=== PATIENT | male | born 1940 | race Caucasian/White ===

== ENCOUNTER 2017-01-06 20:21 | Inpatient (IN) | payer MEDICAID, MEDICARE, OTHER ==
[~2017-01-06] VITALS: Ht 162.6 cm; Wt 63.7 kg
[~2017-01-06 20:21] MED LIST: ESCI10TA PO; FOLI1 PO; MULT-1238 PO; PANT40TA25 PO; THIA100 PO
[2017-01-06] MEDS ORDERED: HALOPERIDOL 5 MG TABLET PO PRN (21:00)
[2017-01-06] MEDS ORDERED: LORazepam 2 MG TABLET PO PRN (21:00)
[2017-01-06] MEDS ORDERED: ZOLPIDEM TARTRATE 10 MG TABLET PO PRN (21:00)
[2017-01-06 21:26] VITALS: BP 124/84
[2017-01-06] MEDS: TraZODone HCL 100 MG TABLET PO SCH (21:32)
[2017-01-06 21:49] VITALS: BP 142/79
[2017-01-07 00:36] VITALS: BP 105/58
[2017-01-07 08:26] VITALS: BP 118/66
[2017-01-07 08:48] LABS: BASOPHILS % (AUTO) 0.4 % (0.0-2.0); EOSINOPHILS % (AUTO) 4.6 % (1.0-6.0); HEMATOCRIT 34.8 % (41-53); HEMOGLOBIN 11.3 g/dL (13.5-17.5); LYMPHOCYTES # (AUTO) 4.1 K/uL (1.0-4.8); LYMPHOCYTES % (AUTO) 37.7 % (22.0-44.0); MEAN CORPUSCULAR HEMOGLOBIN 27.3 pg (26.0-34.0); MEAN CORPUSCULAR HGB CONC 32.5 G/dL (31.0-37.0); MEAN CORPUSCULAR VOLUME 84 fL (80-100); MONOCYTES # (AUTO) 0.6 K/uL (0.1-1.0); NEUTROPHILS # (AUTO) 5.5 K/uL (1.8-7.7); NEUTROPHILS % (AUTO) 51.3 % (40.0-70.0); PLATELET COUNT (AUTO) 241 K/uL (150-450); RED BLOOD CELL COUNT(AUTO) 4.14 MIL/uL (4.50-5.90); RED CELL DISTRIBUTION WIDTH 16.3 % (11.5-14.5); WHITE BLOOD COUNT (AUTO) 10.8 K/uL (4.5-11.0)
[2017-01-07 09:29] LABS: HEMOGLOBIN A1C 5.6 % (4.5-6.2)
[2017-01-07] MEDS: ESCITALOPRAM OXALATE 10 MG TABLET PO SCH (09:35)
[2017-01-07 09:46] LABS: ALANINE AMINOTRANSFERASE 17 U/L (12-78); ALBUMIN 3.2 g/dL (3.4-5.0); ANION GAP 9 mmol/L (8-16); ASPARTATE AMINOTRANSFERASE 7 U/L (15-37); BILIRUBIN,TOTAL 0.4 mg/dL (0.1-1.0); CALCIUM, TOTAL 8.7 mg/dL (8.8-10.5); CARBON DIOXIDE 27 mmol/L (22-29); CHLORIDE 105 mmol/L (98-107); CHOL/HDL RATIO 1.8 (4.2-7.3); CREATININE 0.81 mg/dL (0.60-1.30); GLOMERULAR FILTR. RATE CALC > 60 mL/min (>60); POTASSIUM 4.3 mmol/L (3.5-5.1); SODIUM SERUM 141 mmol/L (136-145); THYROID STIMULATING HORMONE 1.58 uIU/mL (0.36-3.74); TOTAL PROTEIN, SERUM 6.6 g/dL (6.4-8.2); UREA NITROGEN, BLOOD 18 mg/dL (7-18)
[2017-01-07] MEDS ORDERED: PANTOPRAZOLE SODIUM 40 MG DR TABLET PO SCH (10:15)
[2017-01-07] MEDS: PANTOPRAZOLE SODIUM 40 MG DR TABLET PO SCH ×2 (10:24→16:17)
[2017-01-07 10:37] LABS: ADD UA MICROSCOPIC NO; APPEARANCE,URINE CLEAR (CLEAR); GLUCOSE, URINE (UA) NEGATIVE (NEGATIVE); KETONES,URINE NEGATIVE (NEGATIVE); LEUKOCYTE ESTERASE ,URINE NEGATIVE (NEGATIVE); OCCULT BLOOD,URINE NEGATIVE (NEGATIVE); PH,URINE 5.5 (5.0-8.0); PROTEIN,URINE NEGATIVE (NEGATIVE)
[2017-01-07 16:16] VITALS: BP 137/81
[2017-01-07] MEDS: TraZODone HCL 100 MG TABLET PO SCH (20:18)
[2017-01-08 06:36] VITALS: BP 134/74
[2017-01-08 08:32] VITALS: BP 102/64
[2017-01-08 08:32] LABS: BASOPHILS % (AUTO) 0.4 % (0.0-2.0); HEMATOCRIT 34.9 % (41-53); HEMOGLOBIN 11.5 g/dL (13.5-17.5); LYMPHOCYTES # (AUTO) 2.9 K/uL (1.0-4.8); LYMPHOCYTES % (AUTO) 36.8 % (22.0-44.0); MEAN CORPUSCULAR HEMOGLOBIN 27.6 pg (26.0-34.0); MEAN CORPUSCULAR HGB CONC 32.8 G/dL (31.0-37.0); MEAN CORPUSCULAR VOLUME 84 fL (80-100); MONOCYTES # (AUTO) 0.4 K/uL (0.1-1.0); MONOCYTES % (AUTO) 5.5 % (2.0-9.0); NEUTROPHILS # (AUTO) 4.1 K/uL (1.8-7.7); NEUTROPHILS % (AUTO) 52.3 % (40.0-70.0); PLATELET COUNT (AUTO) 230 K/uL (150-450); RED BLOOD CELL COUNT(AUTO) 4.16 MIL/uL (4.50-5.90); RED CELL DISTRIBUTION WIDTH 16.3 % (11.5-14.5); WHITE BLOOD COUNT (AUTO) 7.9 K/uL (4.5-11.0)
[2017-01-08] MEDS: ESCITALOPRAM OXALATE 10 MG TABLET PO SCH (08:38)
[2017-01-08] MEDS: PANTOPRAZOLE SODIUM 40 MG DR TABLET PO SCH ×2 (08:39→16:24)
[2017-01-08] MEDS: FOLIC ACID 1 MG TABLET PO SCH (08:39)
[2017-01-08] MEDS: THIAMINE HCL 100 MG TABLET PO SCH (08:39)
[2017-01-08 09:22] LABS: ALANINE AMINOTRANSFERASE 15 U/L (12-78); ALBUMIN 3.1 g/dL (3.4-5.0); ANION GAP 8 mmol/L (8-16); ASPARTATE AMINOTRANSFERASE 7 U/L (15-37); BILIRUBIN,TOTAL 0.5 mg/dL (0.1-1.0); CALCIUM, TOTAL 8.4 mg/dL (8.8-10.5); CARBON DIOXIDE 28 mmol/L (22-29); CHLORIDE 107 mmol/L (98-107); CHOL/HDL RATIO 2.2 (4.2-7.3); CREATINE KINASE, TOTAL 96 U/L (39-308); CREATININE 0.85 mg/dL (0.60-1.30); GLOMERULAR FILTR. RATE CALC > 60 mL/min (>60); POTASSIUM 4.1 mmol/L (3.5-5.1); SODIUM SERUM 143 mmol/L (136-145); THYROID STIMULATING HORMONE 0.44 uIU/mL (0.36-3.74); TOTAL PROTEIN, SERUM 6.4 g/dL (6.4-8.2); UREA NITROGEN, BLOOD 15 mg/dL (7-18)
[2017-01-08 10:16] LABS: HEMOGLOBIN A1C 5.6 % (4.5-6.2)
[2017-01-08 16:10] VITALS: BP 133/68
[2017-01-08] MEDS: TraZODone HCL 100 MG TABLET PO SCH (20:43)
[2017-01-09 05:57] VITALS: BP 136/60
[2017-01-09 08:45] VITALS: BP 128/59
[2017-01-09] MEDS: THIAMINE HCL 100 MG TABLET PO SCH (09:13)
[2017-01-09] MEDS: FOLIC ACID 1 MG TABLET PO SCH (09:13)
[2017-01-09] MEDS: PANTOPRAZOLE SODIUM 40 MG DR TABLET PO SCH ×2 (09:14→16:28)
[2017-01-09] MEDS: ESCITALOPRAM OXALATE 10 MG TABLET PO SCH (09:14)
[2017-01-09 12:23] LABS: HEPATITIS Bs ANTIGEN SCREEN P Negative (Negative); HEPATITIS C AB SCREEN <0.1 s/co ratio (0.0-0.9)
[2017-01-09 16:00] VITALS: BP 128/75
[2017-01-09] MEDS: TraZODone HCL 100 MG TABLET PO SCH (20:30)
[2017-01-10 06:37] VITALS: BP 129/76
[2017-01-10 08:22] VITALS: BP 131/68
[2017-01-10] MEDS: FOLIC ACID 1 MG TABLET PO SCH (09:18)
[2017-01-10] MEDS: ESCITALOPRAM OXALATE 10 MG TABLET PO SCH (09:18)
[2017-01-10] MEDS: PANTOPRAZOLE SODIUM 40 MG DR TABLET PO SCH ×2 (09:18→16:14)
[2017-01-10] MEDS: THIAMINE HCL 100 MG TABLET PO SCH (09:18)
[2017-01-10 16:18] VITALS: BP 109/74
[2017-01-10] MEDS: TraZODone HCL 100 MG TABLET PO SCH (20:49)
[2017-01-11 07:03] VITALS: BP 138/67
[2017-01-11 07:36] VITALS: BP 110/75
[2017-01-11 08:01] VITALS: BP 138/67
[2017-01-11] MEDS: FOLIC ACID 1 MG TABLET PO SCH (09:38)
[2017-01-11] MEDS: PANTOPRAZOLE SODIUM 40 MG DR TABLET PO SCH ×2 (09:38→17:03)
[2017-01-11] MEDS: ESCITALOPRAM OXALATE 10 MG TABLET PO SCH (09:39)
[2017-01-11] MEDS: THIAMINE HCL 100 MG TABLET PO SCH (09:39)
[2017-01-11 16:26] VITALS: BP 113/62
[2017-01-11] MEDS: TraZODone HCL 100 MG TABLET PO SCH (20:41)
[2017-01-12 04:35] VITALS: BP 122/60
[2017-01-12 08:36] VITALS: BP 131/67
[2017-01-12] MEDS: THIAMINE HCL 100 MG TABLET PO SCH (08:54)
[2017-01-12] MEDS: ESCITALOPRAM OXALATE 10 MG TABLET PO SCH (08:54)
[2017-01-12] MEDS: FOLIC ACID 1 MG TABLET PO SCH (08:54)
[2017-01-12] MEDS: PANTOPRAZOLE SODIUM 40 MG DR TABLET PO SCH ×2 (08:55→16:08)
[2017-01-12 16:06] VITALS: BP 147/73
[2017-01-12] MEDS: TraZODone HCL 100 MG TABLET PO SCH (20:39)
[2017-01-13 06:36] VITALS: BP 135/63
[2017-01-13 08:09] VITALS: BP 149/78
[2017-01-13] MEDS: FOLIC ACID 1 MG TABLET PO SCH (08:24)
[2017-01-13] MEDS: THIAMINE HCL 100 MG TABLET PO SCH (08:24)
[2017-01-13] MEDS: ESCITALOPRAM OXALATE 10 MG TABLET PO SCH (08:25)
[2017-01-13] MEDS: PANTOPRAZOLE SODIUM 40 MG DR TABLET PO SCH ×2 (08:25→16:45)
[2017-01-13] MEDS ORDERED: ALBUTEROL SULFATE HFA 90 MCG/PUFF 8 GM INHALER IH PRN (11:45)
[2017-01-13 16:32] VITALS: BP 139/73
[2017-01-13] MEDS: TraZODone HCL 100 MG TABLET PO SCH (20:25)
[2017-01-14 06:26] VITALS: BP 110/70
[2017-01-14 08:00] VITALS: BP 146/79
[2017-01-14] MEDS: PANTOPRAZOLE SODIUM 40 MG DR TABLET PO SCH (08:17)
[2017-01-14] MEDS: FOLIC ACID 1 MG TABLET PO SCH (08:17)
[2017-01-14] MEDS: THIAMINE HCL 100 MG TABLET PO SCH (08:17)
[2017-01-14] MEDS: ESCITALOPRAM OXALATE 10 MG TABLET PO SCH (08:18)
[2017-01-14] MEDS ORDERED: FLUTICASONE/VILANTEROL 200-25 MCG/INH INHALER [14] IH SCH (09:00)
[2017-01-14] MEDS ORDERED: TRAZ-147 PO (10:19)
[2017-01-14] MEDS ORDERED: FLUT1BLS PO (10:20)
[2017-01-14] MEDS ORDERED: ALBU8HFA4 IH (10:21)
[2017-01-14 16:08] VITALS: BP 107/60
[2017-04-26] MEDS ORDERED: OMEP20 PO (18:33)
[2017-04-26] MEDS ORDERED: ATOR20TA86 PO (18:33)
[2017-04-26] MEDS ORDERED: FURO40 PO (18:33)
[2017-04-26] MEDS ORDERED: PERCT10 PO (18:33)
[2017-04-26] MEDS ORDERED: AMLO-512 PO (18:33)
== END 2017-01-14 14:10 | DRG 885 ==
LOC: B2S 20:53 → EDSTATUS 21:06 → B2S 01-08 21:42
DX: F33.2 Major depressive disorder, recurrent severe without psychotic features (principal); R45.851 Suicidal ideations; I50.30 Unspecified diastolic (congestive) heart failure; K21.9 Gastro-esophageal reflux disease without esophagitis; E78.5 Hyperlipidemia, unspecified; F10.10 Alcohol abuse, uncomplicated; D64.9 Anemia, unspecified; K44.9 Diaphragmatic hernia without obstruction or gangrene; J44.9 Chronic obstructive pulmonary disease, unspecified; I70.0 Atherosclerosis of aorta; N28.1 Cyst of kidney, acquired; I11.0 Hypertensive heart disease with heart failure; I25.10 Atherosclerotic heart disease of native coronary artery without angina pectoris; E88.09 Other disorders of plasma-protein metabolism, not elsewhere classified; F41.9 Anxiety disorder, unspecified; F17.200 Nicotine dependence, unspecified, uncomplicated; Z59.0 Homelessness; Z71.41 Alcohol abuse counseling and surveillance of alcoholic; Z79.899 Other long term (current) drug therapy
CPT/HCPCS: 71020; 71250; 80074; 80307; 82306; 82607; 82746; 83036; 83735; 84439; 84443; 86592; 87081

== ENCOUNTER → 2017-02-25 | Outpatient (CLI) | payer MEDICARE, OTHER ==
[~2017-02-25] VITALS: Ht 162.6 cm; Wt 67.0 kg
[~2017-02-25] MED LIST changes: +ALBU8HFA4 IH; +AMLO-512 PO; +ATOR20TA86 PO; +FLUT1BLS PO; -FOLI1 PO; +FURO40 PO; -MULT-1238 PO; +OMEP20 PO; +PERCT10 PO; -THIA100 PO; +TRAZ-147 PO
[2017-02-25 11:52] VITALS: BP 104/62
== END | disposition home or self-care (01) ==
LOC: SRCNTR 11:37
PROVIDERS: ATTEND Internal Medicine Critical Care Medicine
DX: J44.9 Chronic obstructive pulmonary disease, unspecified (principal); F32.9 Major depressive disorder, single episode, unspecified; F17.210 Nicotine dependence, cigarettes, uncomplicated; R76.11 Nonspecific reaction to tuberculin skin test without active tuberculosis; E78.5 Hyperlipidemia, unspecified; I10 Essential (primary) hypertension; F10.10 Alcohol abuse, uncomplicated
CPT/HCPCS: G0463

== ENCOUNTER 2017-12-05 14:05 | Emergency (ER) | payer MEDICAID, MEDICARE ==
[~2017-12-05] VITALS: Ht 162.6 cm; Wt 59.1 kg
[~2017-12-05 14:05] MED LIST changes: -ALBU8HFA4 IH; -FLUT1BLS PO; -PANT40TA25 PO; -PERCT10 PO
[2017-12-05] MEDS ORDERED: SODIUM CHLORIDE 0.9% 1,000 ML IV ONE (15:15)
[2017-12-05] MEDS ORDERED: PANTOPRAZOLE SODIUM 40 MG/VIAL IVP ONE (15:15)
[2017-12-05] MEDS ORDERED: HYDROmorphone 2 MG/ML SYRINGE IVP ONE (15:15)
[2017-12-05] MEDS ORDERED: ONDANSETRON HCL 4 MG/2 ML VIAL IVP ONE (15:15)
[2017-12-05 15:52] LABS: BASOPHILS % (AUTO) 0.4 % (0.0-2.0); EOSINOPHILS % (AUTO) 0.1 % (1.0-6.0); HEMATOCRIT 35.4 % (41-53); HEMOGLOBIN 11.5 g/dL (13.5-17.5); LYMPHOCYTES # (AUTO) 1.4 K/uL (1.0-4.8); LYMPHOCYTES % (AUTO) 14.3 % (22.0-44.0); MEAN CORPUSCULAR HEMOGLOBIN 24.4 pg (26.0-34.0); MEAN CORPUSCULAR HGB CONC 32.6 G/dL (31.0-37.0); MEAN CORPUSCULAR VOLUME 75 fL (80-100); MONOCYTES # (AUTO) 0.7 K/uL (0.1-1.0); MONOCYTES % (AUTO) 7.3 % (2.0-9.0); NEUTROPHILS # (AUTO) 7.6 K/uL (1.8-7.7); NEUTROPHILS % (AUTO) 77.9 % (40.0-70.0); PLATELET COUNT (AUTO) 280 K/uL (150-450); RED BLOOD CELL COUNT(AUTO) 4.72 MIL/uL (4.50-5.90); RED CELL DISTRIBUTION WIDTH 17.1 % (11.5-14.5)
[2017-12-05 15:59] LABS: ANION GAP 10 mmol/L (8-16); CALCIUM, TOTAL 8.9 mg/dL (8.8-10.5); CARBON DIOXIDE 29 mmol/L (22-29); CHLORIDE 103 mmol/L (98-107); CREATININE 0.92 mg/dL (0.60-1.30); GLOMERULAR FILTR. RATE CALC > 60 mL/min (>60); GLUCOSE,RANDOM 114 mg/dL (70-110); POTASSIUM 3.9 mmol/L (3.5-5.1); SODIUM SERUM 142 mmol/L (136-145); UREA NITROGEN, BLOOD 12 mg/dL (7-18)
[2017-12-05 16:09] LABS: B-TYPE NATRIURETIC PEPTIDE 44 pg/mL (0-100)
[2017-12-05 16:11] LABS: PLATELET MORPHOLOGY COMMENT LARGE PLTS PRESENT
[2017-12-05 16:24] LABS: ALANINE AMINOTRANSFERASE 21 U/L (12-78); ALBUMIN 3.7 g/dL (3.4-5.0); ALKALINE PHOSPHATASE 72 U/L (46-116); ASPARTATE AMINOTRANSFERASE 8 U/L (15-37); BILIRUBIN,TOTAL 0.8 mg/dL (0.1-1.0); CREATINE KINASE MB 1.2 ng/mL (0-5); CREATINE KINASE, TOTAL 139 U/L (39-308); LIPASE 72 U/L (73-393); TOTAL PROTEIN, SERUM 7.5 g/dL (6.4-8.2)
[2017-12-05] MEDS ORDERED: DONNATAL/LIDOCAINE/MAALOX 55 ML BOTTLE PO ONE (16:45)
[2017-12-05 17:36] VITALS: BP 193/95
[2017-12-05] MEDS ORDERED: CloNIDine HCL 0.2 MG TABLET PO ONE (18:15)
== END 2017-12-05 18:31 | disposition left against medical advice (07) ==
LOC: EMS 14:07
DX: K44.9 Diaphragmatic hernia without obstruction or gangrene (principal); E78.00 Pure hypercholesterolemia, unspecified; I11.0 Hypertensive heart disease with heart failure; I50.9 Heart failure, unspecified; K21.9 Gastro-esophageal reflux disease without esophagitis; F17.200 Nicotine dependence, unspecified, uncomplicated
CPT/HCPCS: 36415; 71045; 80053; 82550; 82553; 83690; 83880; 84484; 85025; 93005; 96361; 96374; 96375; 99285; C9113; G0480; J1170; J2405; J7030

== ENCOUNTER 2017-12-17 19:32 | Inpatient (IN) | payer OTHER ==
[~2017-12-17] VITALS: Ht 162.6 cm; Wt 59.4 kg
[2017-12-17] MEDS ORDERED: ZOLP10TA7 PO (19:54)
[2017-12-17] MEDS ORDERED: PERCT PO (19:54)
[2017-12-17 20:11] LABS: BASOPHILS % (AUTO) 0.5 % (0.0-2.0); EOSINOPHILS % (AUTO) 0.2 % (1.0-6.0); HEMATOCRIT 35.2 % (41-53); HEMOGLOBIN 11.5 g/dL (13.5-17.5); LYMPHOCYTES # (AUTO) 2.9 K/uL (1.0-4.8); LYMPHOCYTES % (AUTO) 20.3 % (22.0-44.0); MEAN CORPUSCULAR HEMOGLOBIN 24.4 pg (26.0-34.0); MEAN CORPUSCULAR HGB CONC 32.7 G/dL (31.0-37.0); MEAN CORPUSCULAR VOLUME 75 fL (80-100); MONOCYTES # (AUTO) 0.6 K/uL (0.1-1.0); MONOCYTES % (AUTO) 4.1 % (2.0-9.0); NEUTROPHILS # (AUTO) 10.6 K/uL (1.8-7.7); NEUTROPHILS % (AUTO) 74.9 % (40.0-70.0); PLATELET COUNT (AUTO) 359 K/uL (150-450); RED BLOOD CELL COUNT(AUTO) 4.73 MIL/uL (4.50-5.90); RED CELL DISTRIBUTION WIDTH 16.6 % (11.5-14.5)
[2017-12-17 20:26] LABS: ANION GAP 10 mmol/L (8-16); CALCIUM, TOTAL 9.4 mg/dL (8.8-10.5); CARBON DIOXIDE 30 mmol/L (22-29); CHLORIDE 100 mmol/L (98-107); CREATININE 1.24 mg/dL (0.60-1.30); GLOMERULAR FILTR. RATE CALC 57 mL/min (>60); GLUCOSE,RANDOM 119 mg/dL (70-110); POTASSIUM 3.8 mmol/L (3.5-5.1); SODIUM SERUM 140 mmol/L (136-145); UREA NITROGEN, BLOOD 29 mg/dL (7-18)
[2017-12-17 20:31] LABS: ALANINE AMINOTRANSFERASE 23 U/L (12-78); ALKALINE PHOSPHATASE 74 U/L (46-116); ASPARTATE AMINOTRANSFERASE 9 U/L (15-37); BILIRUBIN,TOTAL 0.4 mg/dL (0.1-1.0); TOTAL PROTEIN, SERUM 7.8 g/dL (6.4-8.2)
[2017-12-17] MEDS ORDERED: LORazepam 2 MG TABLET PO PRN (22:30)
[2017-12-17] MEDS ORDERED: ZOLPIDEM TARTRATE 10 MG TABLET PO PRN (22:30)
[2017-12-17] MEDS ORDERED: HALOPERIDOL 5 MG TABLET PO PRN (22:30)
[2017-12-18 01:32] VITALS: BP 133/76
[2017-12-18] MEDS ORDERED: PNEUMOCOCCAL VACCINE POLYVALENT 0.5 ML VIAL [PPSV23] IM ONE (02:15)
[2017-12-18] MEDS ORDERED: INFLUENZA VIRUS VACCINE QVS 2017-18 (3YR+)/PF 60 MCG/0.5 ML SYRINGE IM ONE (02:15)
[2017-12-18] MEDS: OMEPRAZOLE 20 MG CAPSULE PO SCH (08:32)
[2017-12-18] MEDS: AmLODIPine BESYLATE 10 MG TABLET PO SCH (08:33)
[2017-12-18 08:37] VITALS: BP 112/61
[2017-12-18] MEDS: ESCITALOPRAM OXALATE 10 MG TABLET PO SCH (13:25)
[2017-12-18 16:22] VITALS: BP 118/69
[2017-12-18] MEDS: FUROSEMIDE 40 MG TABLET PO SCH (16:24)
[2017-12-18] MEDS ORDERED: IBUPROFEN 400 MG TABLET PO PRN (16:30)
[2017-12-18] MEDS ORDERED: ACETAMINOPHEN 325 MG TABLET PO PRN (16:30)
[2017-12-18] MEDS ORDERED: TraZODone HCL 100 MG TABLET PO SCH (21:00)
[2017-12-19 01:00] VITALS: BP 111/61
[2017-12-19 08:35] VITALS: BP 124/71
[2017-12-19] MEDS: OMEPRAZOLE 20 MG CAPSULE PO SCH (08:56)
[2017-12-19] MEDS: AmLODIPine BESYLATE 10 MG TABLET PO SCH (08:56)
[2017-12-19] MEDS: FUROSEMIDE 40 MG TABLET PO SCH (08:57)
[2017-12-19] MEDS: ESCITALOPRAM OXALATE 10 MG TABLET PO SCH (08:57)
[2017-12-19 16:20] VITALS: BP 129/67
[2017-12-19] MEDS: ZOLPIDEM TARTRATE 10 MG TABLET PO SCH (20:44)
[2017-12-20 00:20] VITALS: BP 99/65
[2017-12-20 08:20] LABS: BASOPHILS % (AUTO) 0.6 % (0.0-2.0); EOSINOPHILS % (AUTO) 1.8 % (1.0-6.0); HEMATOCRIT 31.7 % (41-53); HEMOGLOBIN 10.2 g/dL (13.5-17.5); LYMPHOCYTES # (AUTO) 3.1 K/uL (1.0-4.8); LYMPHOCYTES % (AUTO) 40.6 % (22.0-44.0); MEAN CORPUSCULAR HEMOGLOBIN 24.1 pg (26.0-34.0); MEAN CORPUSCULAR HGB CONC 32.3 G/dL (31.0-37.0); MEAN CORPUSCULAR VOLUME 75 fL (80-100); MONOCYTES # (AUTO) 0.5 K/uL (0.1-1.0); MONOCYTES % (AUTO) 6.1 % (2.0-9.0); NEUTROPHILS # (AUTO) 3.9 K/uL (1.8-7.7); NEUTROPHILS % (AUTO) 50.9 % (40.0-70.0); PLATELET COUNT (AUTO) 299 K/uL (150-450); RED BLOOD CELL COUNT(AUTO) 4.24 MIL/uL (4.50-5.90); RED CELL DISTRIBUTION WIDTH 16.4 % (11.5-14.5)
[2017-12-20 08:29] LABS: ANION GAP 3 mmol/L (8-16); CALCIUM, TOTAL 8.6 mg/dL (8.8-10.5); CARBON DIOXIDE 34 mmol/L (22-29); CHLORIDE 104 mmol/L (98-107); CREATININE 0.88 mg/dL (0.60-1.30); GLOMERULAR FILTR. RATE CALC > 60 mL/min (>60); GLUCOSE,RANDOM 89 mg/dL (70-110); POTASSIUM 3.8 mmol/L (3.5-5.1); SODIUM SERUM 141 mmol/L (136-145); UREA NITROGEN, BLOOD 20 mg/dL (7-18)
[2017-12-20 08:31] VITALS: BP 105/60
[2017-12-20] MEDS: FUROSEMIDE 40 MG TABLET PO SCH (08:43)
[2017-12-20] MEDS: OMEPRAZOLE 20 MG CAPSULE PO SCH (08:44)
[2017-12-20] MEDS: ESCITALOPRAM OXALATE 10 MG TABLET PO SCH (08:44)
[2017-12-20] MEDS: AmLODIPine BESYLATE 10 MG TABLET PO SCH (08:44)
[2017-12-20 08:50] LABS: % IRON SATURATION 8.3 % (30-44); IRON, SERUM 25 mcg/dL (50-175); TOTAL IRON BINDING CAPACITY 299 mcg/dL (250-450)
[2017-12-20 16:22] VITALS: BP 114/72
[2017-12-20] MEDS: ZOLPIDEM TARTRATE 10 MG TABLET PO SCH (20:51)
[2017-12-21 01:24] VITALS: BP 104/64
[2017-12-21 08:46] VITALS: BP 108/60
[2017-12-21 08:55] VITALS: BP 110/64
[2017-12-21] MEDS: OMEPRAZOLE 20 MG CAPSULE PO SCH (08:58)
[2017-12-21] MEDS: FUROSEMIDE 40 MG TABLET PO SCH (08:58)
[2017-12-21] MEDS: AmLODIPine BESYLATE 10 MG TABLET PO SCH (08:58)
[2017-12-21] MEDS: ESCITALOPRAM OXALATE 10 MG TABLET PO SCH (08:58)
[2017-12-21 16:12] VITALS: BP 107/63
[2017-12-21] MEDS: ZOLPIDEM TARTRATE 10 MG TABLET PO SCH (20:46)
[2017-12-22 02:17] VITALS: BP 129/91
[2017-12-22 08:30] VITALS: BP 112/60
[2017-12-22] MEDS: ESCITALOPRAM OXALATE 10 MG TABLET PO SCH (08:49)
[2017-12-22] MEDS: AmLODIPine BESYLATE 10 MG TABLET PO SCH (08:49)
[2017-12-22] MEDS: FUROSEMIDE 40 MG TABLET PO SCH (08:49)
[2017-12-22] MEDS: OMEPRAZOLE 20 MG CAPSULE PO SCH (08:49)
[2017-12-22 16:08] VITALS: BP 115/61
[2017-12-22 16:09] VITALS: BP 116/68
[2017-12-22] MEDS: ZOLPIDEM TARTRATE 10 MG TABLET PO SCH (20:41)
[2017-12-23 00:17] VITALS: BP 112/63
[2017-12-23] MEDS: FUROSEMIDE 40 MG TABLET PO SCH (08:50)
[2017-12-23] MEDS: OMEPRAZOLE 20 MG CAPSULE PO SCH (08:50)
[2017-12-23] MEDS: AmLODIPine BESYLATE 10 MG TABLET PO SCH (08:50)
[2017-12-23] MEDS: ESCITALOPRAM OXALATE 10 MG TABLET PO SCH (08:50)
[2017-12-23 09:09] VITALS: BP 111/61
[2017-12-23 16:08] VITALS: BP 115/63
[2017-12-23] MEDS: FERROUS SULFATE 325 MG EC TABLET PO SCH (17:29)
[2017-12-23] MEDS: ZOLPIDEM TARTRATE 10 MG TABLET PO SCH (20:58)
[2017-12-24 06:12] VITALS: BP 111/70
[2017-12-24] MEDS: FERROUS SULFATE 325 MG EC TABLET PO SCH ×2 (06:41→11:30)
[2017-12-24] MEDS: FUROSEMIDE 40 MG TABLET PO SCH (08:24)
[2017-12-24] MEDS: OMEPRAZOLE 20 MG CAPSULE PO SCH (08:24)
[2017-12-24] MEDS: ESCITALOPRAM OXALATE 10 MG TABLET PO SCH (08:24)
[2017-12-24] MEDS: AmLODIPine BESYLATE 10 MG TABLET PO SCH (08:24)
[2017-12-24 08:27] VITALS: BP 115/60
[2017-12-24] MEDS ORDERED: ESCI10TA PO (10:49)
[2017-12-24] MEDS ORDERED: FERR-89 PO (10:51)
== END 2017-12-24 13:40 | disposition home or self-care (01) | DRG 885 ==
LOC: EMS 19:39 → B2X 12-18 00:05 → B2S 12-22 08:35 → B2X 12-22 15:27
PROVIDERS: ADMIT Psychiatry & Neurology Child & Adolescent Psychiatry; ATTEND Psychiatry & Neurology Child & Adolescent Psychiatry
DX: F33.2 Major depressive disorder, recurrent severe without psychotic features (principal); I11.0 Hypertensive heart disease with heart failure; R45.851 Suicidal ideations; I50.9 Heart failure, unspecified; D64.9 Anemia, unspecified; J44.9 Chronic obstructive pulmonary disease, unspecified; D72.829 Elevated white blood cell count, unspecified; E78.5 Hyperlipidemia, unspecified; F10.10 Alcohol abuse, uncomplicated; F17.200 Nicotine dependence, unspecified, uncomplicated; I25.10 Atherosclerotic heart disease of native coronary artery without angina pectoris; K21.9 Gastro-esophageal reflux disease without esophagitis; Z59.0 Homelessness
CPT/HCPCS: 83540; 83550; 87081; 90471; 99285; G0480

== ENCOUNTER 2017-12-31 16:23 | Inpatient (IN) | payer OTHER ==
[~2017-12-31] VITALS: Ht 162.6 cm; Wt 57.2 kg
[~2017-12-31 16:23] MED LIST changes: -ATOR20TA86 PO; +FERR-89 PO; -TRAZ-147 PO
[2017-12-31] MEDS ORDERED: LORazepam 2 MG TABLET PO PRN (18:15)
[2017-12-31] MEDS ORDERED: PNEUMOCOCCAL VACCINE POLYVALENT 0.5 ML VIAL [PPSV23] IM ONE (18:15)
[2017-12-31] MEDS ORDERED: INFLUENZA VIRUS VACCINE QVS 2017-18 (3YR+)/PF 60 MCG/0.5 ML SYRINGE IM ONE (18:15)
[2017-12-31] MEDS ORDERED: HALOPERIDOL 5 MG TABLET PO PRN (18:15)
[2017-12-31 18:40] VITALS: BP 143/73
[2017-12-31] MEDS ORDERED: IBUPROFEN 400 MG TABLET PO PRN (19:15)
[2017-12-31] MEDS ORDERED: ACETAMINOPHEN 325 MG TABLET PO PRN (19:15)
[2018-01-01 06:09] VITALS: BP 118/64
[2018-01-01] MEDS: FERROUS SULFATE 325 MG EC TABLET PO SCH ×3 (07:11→16:59)
[2018-01-01] MEDS ORDERED: ACETAMINOPHEN 325 MG TABLET PO PRN (07:15)
[2018-01-01] MEDS ORDERED: IBUPROFEN 400 MG TABLET PO PRN (07:15)
[2018-01-01 08:10] VITALS: BP 118/69
[2018-01-01] MEDS: FUROSEMIDE 40 MG TABLET PO SCH (08:18)
[2018-01-01] MEDS: ESCITALOPRAM OXALATE 10 MG TABLET PO SCH (08:18)
[2018-01-01] MEDS: OMEPRAZOLE 20 MG CAPSULE PO SCH (08:18)
[2018-01-01] MEDS: AmLODIPine BESYLATE 10 MG TABLET PO SCH (08:18)
[2018-01-01 16:27] VITALS: BP 142/73
[2018-01-02 06:37] VITALS: BP 110/66
[2018-01-02] MEDS: FERROUS SULFATE 325 MG EC TABLET PO SCH ×3 (06:40→16:43)
[2018-01-02] MEDS: ESCITALOPRAM OXALATE 10 MG TABLET PO SCH (08:14)
[2018-01-02] MEDS: FUROSEMIDE 40 MG TABLET PO SCH (08:14)
[2018-01-02] MEDS: OMEPRAZOLE 20 MG CAPSULE PO SCH (08:14)
[2018-01-02] MEDS: AmLODIPine BESYLATE 10 MG TABLET PO SCH (08:14)
[2018-01-02 08:26] VITALS: BP 131/67
[2018-01-02 16:12] VITALS: BP 114/64
[2018-01-02] MEDS: ZOLPIDEM TARTRATE 10 MG TABLET PO PRN (20:58)
[2018-01-03 01:11] VITALS: BP 121/60
[2018-01-03] MEDS: FERROUS SULFATE 325 MG EC TABLET PO SCH ×3 (07:14→16:56)
[2018-01-03 08:31] VITALS: BP 110/60
[2018-01-03] MEDS: OMEPRAZOLE 20 MG CAPSULE PO SCH (09:11)
[2018-01-03] MEDS: ESCITALOPRAM OXALATE 10 MG TABLET PO SCH (09:11)
[2018-01-03] MEDS: AmLODIPine BESYLATE 10 MG TABLET PO SCH (09:11)
[2018-01-03] MEDS: FUROSEMIDE 40 MG TABLET PO SCH (09:11)
[2018-01-03 16:00] VITALS: BP 106/66
[2018-01-03] MEDS: ZOLPIDEM TARTRATE 10 MG TABLET PO PRN (21:31)
[2018-01-04 05:49] VITALS: BP 117/61
[2018-01-04] MEDS: FERROUS SULFATE 325 MG EC TABLET PO SCH ×3 (06:27→16:36)
[2018-01-04] MEDS: FUROSEMIDE 40 MG TABLET PO SCH (08:27)
[2018-01-04] MEDS: AmLODIPine BESYLATE 10 MG TABLET PO SCH (08:27)
[2018-01-04] MEDS: ESCITALOPRAM OXALATE 10 MG TABLET PO SCH (08:27)
[2018-01-04] MEDS: OMEPRAZOLE 20 MG CAPSULE PO SCH (08:27)
[2018-01-04 08:32] VITALS: BP 112/69
[2018-01-04 16:13] VITALS: BP 112/73
[2018-01-04] MEDS: ZOLPIDEM TARTRATE 10 MG TABLET PO PRN (20:51)
[2018-01-05 06:35] VITALS: BP 121/68
[2018-01-05] MEDS: FERROUS SULFATE 325 MG EC TABLET PO SCH ×3 (07:07→16:33)
[2018-01-05 08:14] VITALS: BP 119/65
[2018-01-05] MEDS: OMEPRAZOLE 20 MG CAPSULE PO SCH (08:53)
[2018-01-05] MEDS: ESCITALOPRAM OXALATE 20 MG TABLET PO SCH (08:53)
[2018-01-05] MEDS: FUROSEMIDE 40 MG TABLET PO SCH (08:53)
[2018-01-05] MEDS: AmLODIPine BESYLATE 10 MG TABLET PO SCH (08:54)
[2018-01-05 16:04] VITALS: BP 108/64
[2018-01-05] MEDS: ZOLPIDEM TARTRATE 10 MG TABLET PO PRN (20:48)
[2018-01-06 01:44] VITALS: BP 123/67
[2018-01-06] MEDS: FERROUS SULFATE 325 MG EC TABLET PO SCH ×3 (07:17→16:32)
[2018-01-06 09:03] VITALS: BP 103/60
[2018-01-06 09:15] VITALS: BP 112/70
[2018-01-06] MEDS: ESCITALOPRAM OXALATE 20 MG TABLET PO SCH (09:18)
[2018-01-06] MEDS: AmLODIPine BESYLATE 10 MG TABLET PO SCH (09:18)
[2018-01-06] MEDS: OMEPRAZOLE 20 MG CAPSULE PO SCH (09:18)
[2018-01-06] MEDS: FUROSEMIDE 40 MG TABLET PO SCH (09:18)
[2018-01-06 16:07] VITALS: BP 104/63
[2018-01-06 16:32] LABS: GLUCOMETER DEV NAME(LOC) BV2S; GLUCOSE,POINT OF CARE 107 MG/DL (70-110)
[2018-01-06] MEDS: ZOLPIDEM TARTRATE 10 MG TABLET PO PRN (20:51)
[2018-01-07 06:24] VITALS: BP 110/64
[2018-01-07] MEDS: FERROUS SULFATE 325 MG EC TABLET PO SCH ×2 (06:43→11:44)
[2018-01-07 08:11] VITALS: BP 123/79
[2018-01-07] MEDS: FUROSEMIDE 40 MG TABLET PO SCH (08:22)
[2018-01-07] MEDS: AmLODIPine BESYLATE 10 MG TABLET PO SCH (08:22)
[2018-01-07] MEDS: ESCITALOPRAM OXALATE 20 MG TABLET PO SCH (08:22)
[2018-01-07] MEDS: OMEPRAZOLE 20 MG CAPSULE PO SCH (08:22)
== END 2018-01-07 15:40 | disposition home or self-care (01) | DRG 885 ==
LOC: B2X 18:18
PROVIDERS: ATTEND Psychiatry & Neurology Child & Adolescent Psychiatry
DX: F33.2 Major depressive disorder, recurrent severe without psychotic features (principal); I11.0 Hypertensive heart disease with heart failure; I50.9 Heart failure, unspecified; R45.851 Suicidal ideations; D64.9 Anemia, unspecified; E78.5 Hyperlipidemia, unspecified; F10.10 Alcohol abuse, uncomplicated; F17.200 Nicotine dependence, unspecified, uncomplicated; I25.10 Atherosclerotic heart disease of native coronary artery without angina pectoris; K21.9 Gastro-esophageal reflux disease without esophagitis; J44.9 Chronic obstructive pulmonary disease, unspecified; Z71.41 Alcohol abuse counseling and surveillance of alcoholic; Z71.6 Tobacco abuse counseling; Z79.899 Other long term (current) drug therapy; Z98.49 Cataract extraction status, unspecified eye
CPT/HCPCS: 82962; 87081